=== PATIENT | female | born 1970 | race Caucasian/White ===

== ENCOUNTER 2018-05-15 14:07 | Emergency (ER) | payer OTHER ==
--- NOTE | 2018-05-15 14:17 | EDPHY ---
H & P Stated Complaint: left sided chest oain, radiated to left jaw hx of angina Time Seen by Provider: 05/15/18 14:17 HPI/ROS: CHIEF COMPLAINT: Chest pain HISTORY OF PRESENT ILLNESS: The patient has a history of Prinzmetal angina and presents to the ED with increasing chest pain over the past several days. She has been using nitroglycerin for improvement of her symptoms. She reports that she typically does not need to use nitroglycerin. She last was experiencing symptoms over the summer. She did have a negative coronary angiogram in 2009 which did demonstrate vaso spasm. Since that time she has had annual stress echoes performed at [facility] which have demonstrated no acute abnormalities. The patient denies any asymmetric calf pain or swelling. She denies pleuritic chest pain. The patient had been on a low-dose calcium channel trell in the past which she is not currently taking. REVIEW OF SYSTEMS: A comprehensive 10 point review of systems is otherwise negative aside from elements mentioned in the history of present illness. Source: Patient - Personal History LMP (Females 10-55): 15-21 Days Ago Current Tetanus Diphtheria and Acellular Pertussis (TDAP): Yes - Medical/Surgical History Hx Asthma: Yes Hx Chronic Respiratory Disease: No Hx Diabetes: No Hx Cardiac Disease: No Hx Renal Disease: No Hx Cirrhosis: No Hx Alcoholism: No Hx HIV/AIDS: No Hx Splenectomy or Spleen Trauma: No Other PMH: Prinzmetal's angina - Social History Smoking Status: Never smoked - Physical Exam Exam: General Appearance: Alert, no distress Eyes: Pupils equal and round no pallor or injection ENT, Mouth: Mucous membranes moist Respiratory: There are no retractions, lungs are clear to auscultation Cardiovascular: Regular rate and rhythm Gastrointestinal: Abdomen is soft and nontender, no masses, bowel sounds normal Neurological: A&O, normal motor function, normal sensory exam, normal cranial nerves Skin: Warm and dry, no rashes Musculoskeletal: Neck is supple nontender Extremities: symmetrical, full range of motion Constitutional: Initial Vital Signs Temperature (C) 36.8 C 05/15/18 14:11 Heart Rate 90 05/15/18 14:11 Respiratory Rate 16 05/15/18 14:11 Blood Pressure 117/69 05/15/18 14:11 O2 Sat (%) 95 05/15/18 14:11 O2 Delivery Mode Room Air Allergies/Adverse Reactions: codeine [Codeine] Allergy (Unknown, Verified 09/16/09 16:55) MERCURY Allergy (Unknown, Uncoded 09/16/09 16:56) THIMERISOL Allergy (Unknown, Uncoded 09/16/09 16:55) Home Medications: Medication Instructions Recorded Supplements & Vits 09/16/09 Nitroglycerin 05/15/18 amLODIPine BESYLATE [Norvasc 2.5 2.5 mg PO DAILY #30 tab 05/15/18 mg (*)] Medical Decision Making - Diagnostics EKG Interpretation: EKG: Complete interpretation has been separately recorded in the [facility] archive. Summary impression: Sinus rhythm without ischemic changes. ED Course/Re-evaluation: Patient presents to the ED with symptoms consistent with her prior Prinzmetal's angina over the past several days. She struggles with this symptoms occasionally typically uses nitroglycerin. She is no longer on a calcium channel trell. Patient's EKG demonstrates no evidence of ischemia and her troponin is normal. The patient was given 2.5 mg of Norvasc in the emergency department. I did onur Muro from Cardiology. The patient will be discharged home with instructions to begin 2.5 mg of Norvasc on a daily basis. She is scheduled to return to the ED for markedly worsening symptoms or other concerns. Differential Diagnosis: Differential diagnosis considered includes acute coronary syndrome, pericarditis , myocarditis, Prinzmetal's angina - Data Points Laboratory Results: Laboratory Results 05/15/18 14:28 05/15/18 14:28 05/15/18 05/15/18 05/15/18 15:05 14:44 14:28 WBC RBC Hgb Hct MCV MCH MCHC RDW Plt Count MPV Neut % (Auto) Lymph % (Auto) [place] % (Auto) Eos % (Auto) Baso % (Auto) Nucleat RBC Rel Count Absolute Neuts (auto) Absolute Lymphs (auto) Absolute Monos (auto) Absolute Eos (auto) Absolute Basos (auto) Absolute Nucleated RBC Immature Gran % Immature Gran # Sodium 137 mEq/L mEq/L (135-145) Potassium 3.8 mEq/L mEq/L (3.3-5.0) Chloride 104 mEq/L mEq/L (97-110) Carbon Dioxide 25 mEq/l mEq/l (22-31) Anion Gap 8 mEq/L mEq/L (6-14) BUN 15 mg/dL mg/dL (7-23) Creatinine 0.7 mg/dL mg/dL (0.6-1.0) Estimated GFR > 60 Glucose 87 mg/dL mg/dL (70-100) Calcium 9.6 mg/dL mg/dL (8.5-10.4) POC Troponin I 0.01 ng/mL ng/mL TNP (0.00-0.08) 05/15/18 14:28 WBC 7.18 10^3/uL 10^3/uL (3.80-9.50) RBC 4.88 10^6/uL 10^6/uL (4.18-5.33) Hgb 14.9 g/dL g/dL (12.6-16.3) Hct 43.0 % % (38.0-47.0) MCV 88.1 fL fL (81.5-99.8) MCH 30.5 pg pg (27.9-34.1) MCHC 34.7 g/dL g/dL (32.4-36.7) RDW 12.7 % % (11.5-15.2) Plt Count 233 10^3/uL 10^3/uL (150-400) MPV 10.0 fL fL (8.7-11.7) Neut % (Auto) 59.1 % % (39.3-74.2) Lymph % (Auto) 34.4 % % (15.0-45.0) [place] % (Auto) 5.6 % % (4.5-13.0) Eos % (Auto) 0.4 % L % (0.6-7.6) Baso % (Auto) 0.4 % % (0.3-1.7) Nucleat RBC Rel Count 0.0 % % (0.0-0.2) Absolute Neuts (auto) 4.24 10^3/uL 10^3/uL (1.70-6.50) Absolute Lymphs (auto) 2.47 10^3/uL 10^3/uL (1.00-3.00) Absolute Monos (auto) 0.40 10^3/uL 10^3/uL (0.30-0.80) Absolute Eos (auto) 0.03 10^3/uL 10^3/uL (0.03-0.40) Absolute Basos (auto) 0.03 10^3/uL 10^3/uL (0.02-0.10) Absolute Nucleated RBC 0.00 10^3/uL 10^3/uL (0-0.01) Immature Gran % 0.1 % % (0.0-1.1) Immature Gran # 0.01 10^3/uL 10^3/uL (0.00-0.10) Sodium Potassium Chloride Carbon Dioxide Anion Gap BUN Creatinine Estimated GFR Glucose Calcium POC Troponin I Medications Given: Discontinued Medications Amlodipine Besylate (Norvasc) 2.5 mg PO EDNOW ONE Stop: 05/15/18 14:43 Last Admin: 05/15/18 15:08 Dose: 2.5 mg Point of Care Test Results: Chemistry 05/15/18 05/15/18 15:05 14:44 POC Troponin I 0.01 ng/mL ng/mL TNP (0.00-0.08) Departure - Departure Disposition: Home, Routine, Self-Care Clinical Impression: Chest pain Condition: Good Instructions: Chest Pain (ED) Additional Instructions: The testing in the emergency department today demonstrates no evidence of an obvious heart attack. I discussed her case with the print machine operator. We do recommend resuming Norvasc at 2.5 mg daily. Please return to the ED for markedly worsening symptoms or other concerns. You should follow up with your print machine operator for recheck this week or next. Referrals: MIROSLAVA CRENSHAW [Primary Care Provider] - As per Instructions Prescriptions: amLODIPine BESYLATE [Norvasc 2.5 mg (*)] 2.5 mg PO DAILY #30 tab
--- NOTE | 2018-05-15 14:32 | CPEKG ---
Test Reason : OPEN Blood Pressure : / mmHG Vent. Rate : 078 BPM Atrial Rate : 078 BPM P-R Int : 128 ms QRS Dur : 086 ms QT Int : 356 ms P-R-T Axes : 060 071 021 degrees QTc Int : 406 ms Sinus rhythm Confirmed by Brendan Ruiz ([id number]) on 05/15/2018 2:31:57 PM Referred By: Confirmed By:Brendan Ruiz
[2018-05-15 14:37] LABS: PLATELET COUNT 233 10^3/uL (150-400)
[2018-05-15] MEDS ORDERED: amLODIPine BESYLATE 5 MG TAB PO ONE (14:42)
[2018-05-15 16:06] VITALS: BP 124/82
== END 2018-05-15 16:15 | disposition home or self-care (01) ==
DX: R07.9 Chest pain, unspecified (principal); Z86.79 Personal history of other diseases of the circulatory system
CPT/HCPCS: 84484-PO

== ENCOUNTER → 2018-11-20 | Outpatient (CLI) | payer OTHER | LOC: BMCIMAGING 08:50 | PROVIDERS: ATTEND Family Medicine | DX: S99.911A Unspecified injury of right ankle, initial encounter (principal) ==

== ENCOUNTER → 2018-12-31 | Outpatient (CLI) | payer OTHER | LOC: FIMAGING 12:26 ==